=== PATIENT | male | born 1955 | race Caucasian/White ===

== ENCOUNTER 2016-09-19 09:01 | Emergency (ER) | payer OTHER ==
[2016-09-19 09:07] VITALS: TEMP 97.9
[2016-09-19 10:10] LABS: % IMMATURE GRANULYOCYTES 0.6 % (0.0-1.1); ABSOLUTE IMMATURE GRANULOCYTES 0.03 10^3/uL (0.00-0.10); ADD DIFF? NO; ADD MORPH? NO; ADD SCAN? NO; ATYPICAL LYMPHOCYTE FLAG 0 (0-99); FRAGMENT RBC FLAG 0 (0-99); HEMATOCRIT 42.7 % (40.0-51.0); HEMOGLOBIN 14.4 g/dL (13.7-17.5); LEFT SHIFT FLG 0 (0-99); LIPEMIA HEMOLYSIS FLAG 80 (0-99); MEAN CELL HEMOGLOBIN 28.3 pg (27.9-34.1); MEAN CELL HEMOGLOBIN CONCENTR. 33.7 g/dL (32.4-36.7); MEAN CELL VOLUME 84.1 fL (81.5-99.8); MEAN PLATELET VOLUME 9.6 fL (8.7-11.7); PLATELET CLUMPS FLAG 40 (0-99); PLATELET COUNT 226 10^3/uL (150-400); RED BLOOD CELL COUNT 5.08 10^6/uL (4.40-6.38); RED CELL DISTRIBUTION WIDTH 13.5 % (11.5-15.2)
[2016-09-19 10:31] LABS: ALANINE AMINOTRANSFERASE 169 IU/L (21-72); ALBUMIN 4.9 g/dL (3.5-5.0); ALKALINE PHOSPHATASE 49 IU/L (38-126); ANION GAP 10 mEq/L (8-16); ASPARTATE AMINOTRANSFERASE 87 IU/L (17-59); BILIRUBIN,TOTAL 0.8 mg/dL (0.1-1.4); BILIRUBIN-CONJUGATED 0.4 mg/dL (0.0-0.5); BILIRUBIN-UNCONJUGATED 0.4 mg/dL (0.0-1.1); CARBON DIOXIDE 21 mEq/l (22-31); CHLORIDE 106 mEq/L (97-110); GLOMERULAR FILTRATION RATE > 60; GLUCOSE 100 mg/dL (70-100); POTASSIUM 4.9 mEq/L (3.5-5.2); SODIUM 137 mEq/L (134-144); TOTAL PROTEIN 7.5 g/dL (6.3-8.2)
--- NOTE | 2016-09-19 10:44 | EDPHY ---
H & P Smoking Status: Never smoked Time Seen by Provider: 09/19/16 09:33 HPI/ROS: CHIEF COMPLAINT: Rash, genital itching HISTORY OF PRESENT ILLNESS: 61-year-old male presents to the emergency department by private vehicle complaining of diffuse rash that began last week. He has seen his primary care provider for this who started him on prednisone for 3 days and saw him back on Saturday, 2 days ago, and had no relief and therefore was referred to general education professor. Saw a general education professor, Dr. Perdomo, who did a skin biopsy of the rash. She also saw the patient back and had laboratory studies drawn. He had elevated liver function tests. Yesterday and especially today he noted intense itching inside his penis. He denies dysuria denies a burning sensation in his penis. Denies discharge from the penis. He tried taking Benadryl without relief. He denies chest pain or difficulty breathing. No new medications. No change in his medications. The general education professor thought maybe this was related to his blood pressure medicines, amlodipine and lisinopril, however the patient has been taking these as prescribed for last 2 years. He also has a history of hypothyroidism and has been on generic Synthroid for at least 30 years. REVIEW OF SYSTEMS: Constitutional: No fever, no chills. Eyes: No double or blurry vision. ENT: No sore throat. Respiratory: No cough, no shortness of breath. Cardiac: No chest pain. Gastrointestinal: No abdominal pain, vomiting or diarrhea. Genitourinary: No dysuria. Musculoskeletal: No neck or back pain. Skin: Rash as above. Neurological: No headache. (Malena Ruiz) Past Medical/Surgical History: Hypertension (Malena Ruiz) Social History: , works as a banker (Malena Ruiz) Physical Exam: General Appearance: Alert, no distress. 95% on room air, temperature 36.6degrees Eyes: Pupils equal and round. Extraocular motions are all intact. ENT: Mouth: Mucous membranes moist. Respiratory: No wheezing, rhonchi, or rales, lungs are clear to auscultation. Cardiovascular: Regular rate and rhythm. Gastrointestinal: Abdomen is soft and nontender, no masses, no rebound or guarding, bowel sounds normal. Neurological: Alert and oriented x 3, cranial nerves II through XII grossly intact Skin: Diffuse erythematous macular papular rash noted from his head down to his feet. No vesicular lesions noted. It does peter to the touch. Examination of the groin reveals redness specially to the very tip of the penis. The skin appears very dry. There is no cracking. There is no redness that urinary meatus. There is no laceration or bleeding at the urinary meatus. Musculoskeletal: Nontender to palpate along the cervical, thoracic or lumbar spine. Neck is supple. Extremities: Full range of motion and no peripheral edema. Psychiatric: Patient is oriented X 3, there is no agitation. (Malena Ruiz) Constitutional: Initial Vital Signs Temperature (C) 36.6 C 09/19/16 09:04 Heart Rate 66 09/19/16 09:04 Respiratory Rate 20 09/19/16 09:04 Blood Pressure 165/85 H 09/19/16 09:04 O2 Sat (%) 95 09/19/16 09:04 O2 Delivery Mode Room Air Allergies/Adverse Reactions: No Known Allergies Allergy (Unverified 09/19/16 09:03) Home Medications: Medication Instructions Recorded Amlodipine Besylate 09/19/16 Lisinopril 09/19/16 Synthroid 09/19/16 predniSONE 40 mg PO DAILY 3 Days 09/19/16 Medical Decision Making ED Course/Re-evaluation: 61-year-old male presents to the emergency department by private vehicle with genital itching and rash. He has already seen general education professor twice and had a skin biopsy. He has seen his primary care provider for this as well. The patient was also seen examined by Dr. Kaela Vogt, secondary supervising physician. She recommends restarting the patient on prednisone. Laboratory studies were all unremarkable with the exception of his liver function tests are still elevated. The patient was advised to follow up with primary care provider to have this recheck. Patient is not jaundiced. He has no abdominal pain. His general itching has improved. I spoke with the on-call urologist, Dr. Juan M Gabriel, who advised that the patient take Benadryl which she is already taking and he can see him in follow- up. He did not have any other recommendations. (Malena Ruiz) Differential Diagnosis: Including but not limited to contact dermatitis, medication reaction, sepsis, urethritis, urinary tract infection, pyelonephritis (Malena Ruiz) Other Provider: I evaluated and participated in the management of the patient. I also evaluated the patient independently. My co-signature indicates that I have reviewed this chart and I agree with the findings and plan of care as documented. My personal H&P findings include: 61-year-old male presenting with diffuse rash which has not improved with prednisone. [facility] and was referred to the emergency department. His primary complaint to me is urethral itching. Patient has no ulcerations in his mouth, no throat pain, no abdominal pain, no true dysuria although he complains that the urethra is itchy. He has noticed no discharge. He is in a monogamous relationship. He does not use condoms. There has been no new exposure on this surface of the penis that the patient can recall. On examination the patient has diffuse erythroderma across the entire body with sparing of the area of his underwear. Seems that the rash may have been made worse with sun exposure. He does have erythema at the penile head and the glans. There is no urethral discharge. No testicular swelling or tenderness. Unclear to me exactly what is responsible for the patient's complaints of urethral itching. His urinalysis is negative. I doubt sexually transmitted disease. There is some concern that perhaps the topical steroid cream which he had been given by dermatology may have inadvertently been placed near or inside the urethral resulting in some itching. I believe that patient is safe to be discharged on a 2nd course of steroids with close follow-up at his primary care physician and the dermatology office. (Kaela Vogt) - Data Points Laboratory Results: Laboratory Results 09/19/16 10:00 09/19/16 10:00 Departure - Departure Disposition: Home, Routine, Self-Care Clinical Impression: Rash, Itching of male genitalia, Elevated liver function tests Condition: Good Instructions: Acute Rash (ED) Additional Instructions: Your liver function tests are elevated and should be repeated and discussed with your primary care provider. Prednisone 40 mg daily for 3 days. Benadryl 50 mg every 6 hours as needed for itching. You may continue Zyrtec as needed for itching. You may also try over- the-counter ranitidine 150 mg twice daily for itching. Follow-up with general education professor as discussed for the results of your skin biopsy. Return to the emergency department if you have any other change in symptoms or if you feel worse. Do not apply the steroid cream to the urinary meatus as discussed. Referrals: Damion Del Angel [Primary Care Provider] - As per Instructions Prescriptions: predniSONE 40 mg PO DAILY 3 Days
[2016-09-19 11:09] LABS: COLOR YELLOW; LEUKOCYTE ESTERASE,URINE NEGATIVE (NEGATIVE); NITRITE,URINE NEGATIVE (NEGATIVE)
[2016-09-19 11:10] LABS: MUCUS TRACE /lpf (NONE-1+)
[2016-09-19 11:40] VITALS: O2SAT 97
[2016-09-19 12:33] VITALS: BP 161/91; PULSE 52; RESP 18
== END 2016-09-19 12:32 | disposition home or self-care (01) ==
DX: R21 Rash and other nonspecific skin eruption (principal); L29.9 Pruritus, unspecified; R79.89 Other specified abnormal findings of blood chemistry; I10 Essential (primary) hypertension